=== PATIENT | male | born 1980 | race Caucasian/White ===

== ENCOUNTER 2020-01-15 13:14 | Emergency (ER) | payer OTHER, SELFPAY ==
[2020-01-15 13:25] VITALS: BP 137/78; PULSE 92; RESP 18; TEMP 37.1; O2SAT 100
--- NOTE | 2020-01-15 13:39 | ED.DENTAL ---
HPI - Dental/Oral General Chief complaint: Dental/Oral Stated complaint: Tooth pain Time Seen by Provider: 01/15/20 13:39 Source: patient and RN notes reviewed Mode of arrival: ambulatory Limitations: no limitations History of Present Illness HPI Narrative: 31-year-old male presents with concern for left lower dental pain. Reports having teeth extracted recently, many caries, missing teeth, broken teeth. Reports left lower facial swelling, pain. Denies drooling, difficulty swallowing, fever, malaise. In a separate complaint, he reports a rash on his neck area where he recently shaved a heavy sue. He reports occasionally itchy rash. Reports that waxes and wanes. Reports trying [id number] remedies with no relief. MD Complaint: tooth pain Teeth map: 1. Broken tooth, caries Related Data Home Medications Medication Instructions Recorded Confirmed buspirone mg 01/15/20 Allergies Allergy/AdvReac Type Severity Reaction Status Date / Time No Known Allergies Allergy Unverified 06/13/18 18:43 Review of Systems Review of Systems: Narrative: CONSTITUTIONAL: Denies malaise, chills, sweats, or fever. EYES: Denies visual changes, redness, or discharge. ENT: Denies rhinorrhea, congestion, sinus pain, otalgia or sore throat. Reports broken teeth, missing teeth, caries, left lower tooth pain and jaw swelling. CARDIOVASCULAR: Denies chest pain, palpitations RESPIRATORY: Denies cough or dyspnea. SKIN: Reports itchy rash on neck and sue line MUSCULOSKELETAL: Denies myalgia. NEUROLOGIC: Denies numbness, weakness, or headache. All systems reviewed & are unremarkable except as noted in HPI and below PMFSH Comments At time of signature, agree with nursing past medical, surgical, social and family history. There is no relevant family history pertinent to the presenting complaint Exam Narrative: Exam Narrative: GENERAL: Well-appearing, well-nourished, and in no acute distress. HEAD: Normocephalic EYES: PERRLA, conjunctivae clear ENT: Nares clear. Mucous membranes moist. Oropharynx without edema, erythema or lesions. Many missing teeth, broken teeth, caries. Left lower jaw swelling NECK: Supple. CHEST: No respiratory distress. Speaks in full sentences. HEART: Regular rate and rhythm. SKIN: Warm, dry. Erythematous maculopapular rash noted to neck, sue area NEURO: Alert and oriented x3. PSYCH: Normal mood and affect Course Course Emergency Course: Patient is aware of diagnosis, understands and agrees to treatment plan. Anticipatory guidance given. Patient agrees to follow-up as directed and is aware of reasons to seek care at the emergency department. Portions of this record may have been created with voice recognition software Vital Signs Vital signs: Vital Signs Temperature 98.8 F 01/15/20 13:25 Pulse Rate 92 01/15/20 13:25 Respiratory Rate 18 01/15/20 13:25 Blood Pressure 137/78 01/15/20 13:25 Pulse Oximetry 100 01/15/20 13:25 Temperature 98.8 F 01/15/20 13:25 Pulse Rate 92 01/15/20 13:25 Respiratory Rate 18 01/15/20 13:25 Blood Pressure 137/78 01/15/20 13:25 Pulse Oximetry 100 01/15/20 13:25 Reviewed. Pt has been instructed to follow up with his primary care provider within the next week regarding his elevated blood pressure today. MDM - Dental/Oral MDM Narrative Medical decision making narrative: Patients pain and complaint coupled with physical findings are consistant with dentalgia. There are no focal signs of space occupying lesions that are compromising to the airway; no dysphagia, odynophagia, dysphonia, or dyspnea. No uvular deviation or soft palate edema. Patient is non-toxic appearing. The floor of the mouth is soft with no signs of Jarvis's Angina; no induration below mandible, no neck pain. Patient is without trismus or drooling and able to swallow secretions. Patient is felt appropriate for discharge home with dental follow up. Does not appear at this t
== END 2020-01-15 13:48 | disposition home or self-care (01) ==
PROVIDERS: Emergency Provider Nurse Practitioner
DX: K08.89 Other specified disorders of teeth and supporting structures (principal); R21 Rash and other nonspecific skin eruption
CPT/HCPCS: 99213; G0463

== ENCOUNTER 2020-04-26 19:02 | Emergency (ER) | payer OTHER, SELFPAY ==
--- NOTE | ~2020-04-26 | XR_ITS ---
EXAMINATION: XR chest 1V portable 04/26/2020 20:07 INDICATION: Tachycardia. Overdose. PROCEDURE: AP portable chest COMPARISON: 11/13/2018 FINDINGS: The lungs are clear. The cardiomediastinal silhouette is within normal limits. There are no pleural effusions. There is no pneumothorax suspected. IMPRESSION: 1: NO ACUTE CARDIOPULMONARY DISEASE. Reviewed, dictated and finalized at location A.
[2020-04-26 19:01] VITALS: PULSE 132; RESP 36; TEMP 36.4; O2SAT 97
[2020-04-26] MEDS: HALOPERIDOL LACTATE 5 MG/ML VIAL (19:08)
--- NOTE | 2020-04-26 19:08 | PC.NURSE ---
Pt given 5MG Haldol IM and 2MG Ativan IVP per EDP at bedside.
--- NOTE | 2020-04-26 19:15 | ECG_ITS ---
Measurements Intervals [place] Rate: 110 P: 65 NC: 145 QRS: 76 QRSD: 80 T: 69 QT: 342 QTc: 463 Interpretive Statements SINUS TACHYCARDIA BASELINE ARTIFACT- I, II, III, AVR, AVL, AVF ABNORMAL ECG Electronically Signed On 04-27-2020 7:20:59 CDT by Giovanni Martinez D.O.
--- NOTE | 2020-04-26 19:16 | ED.OVERDOSE ---
HPI - Overdose General Chief Complaint: Overdose Stated Complaint: OD Time Seen by Provider: 04/26/20 19:04 History of Present Illness HPI Narrative: History taken from EMS, due to patient's acuity of condition. 39-year-old male presents via EMS for altered mental status today. Per EMS, they were called for decreased level consciousness. Patient was given intranasal Narcan with response. Family states that patient took fentanyl. Upon EMS arrival, patient was severely agitated. Patient nonverbal, is not following commands. Related Data Home Medications Medication Instructions Recorded Confirmed buspirone mg 01/15/20 Allergies Allergy/AdvReac Type Severity Reaction Status Date / Time No Known Allergies Allergy Unverified 06/13/18 18:43 Review of Systems Review of Systems: ROS unobtainable: Yes unobtainable due to medical condition Exam Narrative: Exam Narrative: GENERAL: Moderate distress HEAD: Normocephalic, atraumatic. EYES: Dilated pupils ENT: Nares clear, no rhinorrhea or epistaxis. Mucous membranes moist. Poor dentition NECK: Supple. CHEST: Clear to auscultation. No respiratory distress. HEART: Tachycardia, no murmur heard. ABDOMEN: Soft, nontender, nondistended, normal active bowel sounds. EXTREMITIES: Moves all extremities. SKIN: Warm, dry, no rash. NEURO: nonverbal, does not follow commands. PSYCH: Agitated Course Vital Signs Vital signs: Vital Signs Temperature 36.4 C L 04/26/20 19:01 Pulse Rate 132 H 04/26/20 19:01 Respiratory Rate 36 H 04/26/20 19:01 Pulse Oximetry 97 04/26/20 19:01 Temperature 36.4 C L 04/26/20 19:01 Pulse Rate 118 H 04/26/20 19:24 Respiratory Rate 19 04/26/20 19:24 Blood Pressure 112/90 04/26/20 19:24 Pulse Oximetry 100 04/26/20 19:24 MDM - Overdose MDM Narrative Medical decision making narrative: 23:22 - Care transferred to Dr. Echeverria, pending clinical improvement Medical Records Attestation: I reviewed the patient's medical records. Lab Data Attestation: I reviewed the patient's lab results. Result diagrams: 04/26/20 20:27 04/26/20 20:27 Labs: Lab Results 04/26/20 04/26/20 04/26/20 Range/Units 20:24 20:27 20:27 WBC 8.5 (4.5-10.0) K/mm3 RBC 4.10 L (4.6-6.20) M/mm3 Hgb 10.8 L (14.0-18.0) g/dL Hct 32.5 L (42.0-52.0) % MCV 79.3 L (80-100) fl MCH 26.3 (26-34) pg MCHC 33.2 (32-36) g/dl RDW 13.6 (11.5-14.5) % Plt Count 258 (150-375) k/mm3 MPV 9.2 (7.4-10.4) fl Immature Gran % (Auto) 0.4 (0-0.5) % Neut % (Auto) 81.0 H (45.5-73.1) % Lymph % (Auto) 11.5 L (18.3-44.2) % [place] % (Auto) 6.6 (2.6-8.5) % Eos % (Auto) 0.4 (0-4.4) % Baso % (Auto) 0.1 L (0.2-1.2) % Lymph # (Auto) 0.98 (0.9-3.2) K/mm3 [place] # (Auto) 0.6 (0.1-0.6) K/mm3 Eos # (Auto) 0.0 (0-0.3) K/mm3 Baso # (Auto) 0.0 (0.0-0.1) K/mm3 Abs Immat Gran (auto) 0.03 (0.00-0.031) K/mm3 Absolute Neuts (auto) 6.9 H (1.3-6.7) K/mm3 Absolute Nucleated RBC 0.0 (0.0-0.012) K/mm3 Nucleated RBC % 0.0 (0.0-0.2) % Sodium 137 (137-145) mmol/L Potassium 3.5 (3.4-5.0) mmol/L Chloride 103 (98-107) mmol/L Carbon Dioxide 27 (22-30) mmol/L Anion Gap 7 L (8-16) mmol/L BUN 9 (9-20) mg/dL Creatinine 0.70 (0.7-1.3) mg/dL Estim Creat Clear Calc Not Reportable Estimated GFR > 60 (59 - ) Glucose 105 (75-110) mg/dL Calcium 8.8 (8.4-10.2) mg/dL Magnesium 2.0 (1.6-2.3) mg/dL Total Bilirubin 0.5 (0.2-1.3) mg/dL AST 24 (17-59) U/L ALT 12 (4-50) U/L Alkaline Phosphatase 82 (38-126) U/L Total Creatine Kinase 123 (55-170) U/L Total Protein 7.0 (6.3-8.2) g/dL Albumin 3.7 (3.5-5.1) g/dL Salicylates (2-20) mg/dL Urine Opiates Screen Negative (Negative) Urine Methadone Screen Negative (Negative) Acetaminophen (10-30) ug/mL Ur Barbiturates Screen Neg
--- NOTE | 2020-04-26 19:21 | PC.NURSE ---
pt in room thrashing unable to stay still, unable to draw blood at this time
--- NOTE | 2020-04-26 19:23 | PC.NURSE ---
report received at this time. pt thrashing around in bed. pt remains in soft restraints. pt uncooperative with blood draw, EKG, urine collection, XR. aware at this time. awaiting medication to take affect.
[2020-04-26 19:24] VITALS: BP 112/90; PULSE 118; RESP 19; O2SAT 100
[2020-04-26 20:35] LABS: Basophils Percent Auto 0.1 % (0.2-1.2); Eosinophils Percent Auto 0.4 % (0-4.4); Hematocrit 32.5 % (42.0-52.0); Hemoglobin 10.8 g/dL (14.0-18.0); Immature Granulocyte Absolute 0.03 K/mm3 (0.00-0.031); Immature Granulocyte Percent A 0.4 % (0-0.5); Lymphocytes Absolute Auto 0.98 K/mm3 (0.9-3.2); Lymphocytes Percent Auto 11.5 % (18.3-44.2); Mean Corpuscular HGB Conc 33.2 g/dl (32-36); Mean Corpuscular Hemoglobin 26.3 pg (26-34); Mean Corpuscular Volume 79.3 fl (80-100); Mean Platelet Volume 9.2 fl (7.4-10.4); Monocytes Absolute Auto 0.6 K/mm3 (0.1-0.6); Monocytes Percent Auto 6.6 % (2.6-8.5); Neutrophils Absolute Auto 6.9 K/mm3 (1.3-6.7); Platelet Count Result 258 k/mm3 (150-375); Red Cell Distribution Width 13.6 % (11.5-14.5); White Blood Count 8.5 K/mm3 (4.5-10.0)
[2020-04-26 20:46] LABS: Acetaminophen < 10 ug/mL (10-30); Ethanol < 10 mg/dL (<10); Salicylate < 1.0 mg/dL (2-20)
[2020-04-26 20:46] LABS: Amphetamine Screen Urine Negative (Negative); Barbiturate Screen Urine Negative (Negative); Benzodiazepines Screen Urine Negative (Negative); Cannabinoid Screen Urine Positive (Negative); Cocaine Screen Urine Negative (Negative); Methadone Screen Urine Negative (Negative); Opiate Screen Urine Negative (Negative); Phencyclidine Screen Urine Negative (Negative)
[2020-04-26 20:53] LABS: Alanine Aminotransferase 12 U/L (4-50); Albumin Level 3.7 g/dL (3.5-5.1); Alkaline Phosphatase 82 U/L (38-126); Anion Gap 7 mmol/L (8-16); Aspartate Amino Transferase 24 U/L (17-59); Bilirubin,Total 0.5 mg/dL (0.2-1.3); Blood Urea Nitrogen 9 mg/dL (9-20); Calcium 8.8 mg/dL (8.4-10.2); Carbon Dioxide 27 mmol/L (22-30); Chloride 103 mmol/L (98-107); Creatine Kinase 123 U/L (55-170); Estimated Glomerular Filt Rate > 60; Glucose 105 mg/dL (75-110); Potassium 3.5 mmol/L (3.4-5.0); Sodium 137 mmol/L (137-145)
--- NOTE | 2020-04-26 21:00 | PC.NURSE ---
pt awake and answering questions appropriately at this time. pt states he only took Fentanyl today, states he has been using for years. pt no longer combative. MD at bedside. soft restraints removed at this time.
[2020-04-26 22:14] VITALS: BP 101/69; PULSE 96; RESP 17; O2SAT 99
--- NOTE | 2020-04-26 22:15 | PC.NURSE ---
pt continues to rest on stretcher at this time in NAD. RR even and unlabored. pt remains hooked up to monitor. pt's girlfriend called, updated on poc per pt request. pt denies any needs/concerns. pt remains calm/cooperative. will continue to monitor pt for baseline status changes.
--- NOTE | 2020-04-27 00:16 | PC.NURSE ---
pt's girlfriend at bedside at this time. pt continues to answer questions appropriately, denies any pain. pt vs stable, RR even and unlabored, denies any pain. pt remains hooked up to monitor, remains calm/cooperative. will continue to monitor pt for baseline status changes.
[2020-04-27 00:30] VITALS: BP 104/70; PULSE 86; RESP 19; O2SAT 100
== END 2020-04-27 00:42 | disposition home or self-care (01) ==
PROVIDERS: Emergency Provider Emergency Medicine
DX: T40.4X1A Poisoning by other synthetic narcotics, accidental (unintentional), initial encounter (principal)
CPT/HCPCS: 36415; 71045; 80053; 80307; 82550; 83735; 85025; 93005; 96372; 99285; J1630; J2060

== ENCOUNTER 2020-04-27 19:58 | Emergency (ER) | payer OTHER, SELFPAY ==
--- NOTE | ~2020-04-27 | XR_ITS ---
EXAMINATION: XR chest 2V 04/27/2020 20:46 INDICATION: Shortness of breath. Medial chest pain. Smoker. PROCEDURE: 2 view chest COMPARISON: 04/26/2020 FINDINGS: The lungs are clear. The cardiomediastinal silhouette is within normal limits. There are no pleural effusions. There is no pneumothorax suspected. IMPRESSION: 1: NO ACUTE CARDIOPULMONARY DISEASE. Reviewed, dictated and finalized at location A.
[2020-04-27 20:15] VITALS: BP 138/81; PULSE 95; RESP 20; TEMP 36.9; O2SAT 98
--- NOTE | 2020-04-27 20:37 | ECG_ITS ---
Measurements Intervals [place] Rate: 102 P: 67 UT: 168 QRS: 62 QRSD: 80 T: 55 QT: 351 QTc: 459 Interpretive Statements SINUS TACHYCARDIA BASELINE ARTIFACT- II, III, AVR, AVL, AVF, V1-V3 ABNORMAL ECG Electronically Signed On 04-27-2020 21:56:03 CDT by Giovanni Martinez D.O.
--- NOTE | 2020-04-27 20:38 | ED.SOB ---
HPI - SOB/Dyspnea General Chief Complaint: Shortness of Breath/Dyspnea Stated Complaint: cant stop smiling Time Seen by Provider: 04/27/20 20:26 Source: patient History of Present Illness HPI Narrative: 39-year-old male presents emergency department feeling short of breath since this morning. Patient states he has never felt like this in the past before. Nothing makes it worse or better. He states he was at home, and fell like he could not catch his breath. He does state he was feeling anxious. Has not taken anything for symptoms. No chest pain. No abdominal pain. No nausea or vomiting. Related Data Home Medications Medication Instructions Recorded Confirmed buspirone mg 01/15/20 Allergies Allergy/AdvReac Type Severity Reaction Status Date / Time No Known Allergies Allergy Unverified 06/13/18 18:43 Review of Systems Review of Systems: Narrative: CONSTITUTIONAL: Denies fever, chills, or sweats. EYES: Denies visual changes, redness, or discharge. ENT: Denies rhinorrhea, congestion, sore throat, or otalgia. CARDIOVASCULAR: Denies chest pain, palpitations, or edema. RESPIRATORY: Denies cough. Reports shortness of breath GASTROINTESTINAL: Denies abdominal pain, nausea, vomiting, or diarrhea. GENITOURINARY: Denies dysuria or hematuria. SKIN: Denies rash or itching. MUSCULOSKELETAL: Denies back pain, joint pain, or myalgia. NEUROLOGIC: Denies headache, numbness, dizziness, or weakness. PSYCHIATRIC: Denies anxiety or depression. All systems reviewed & are unremarkable except as noted in HPI and below (ROS) Exam Narrative: Exam Narrative: GENERAL: Well-appearing, well-nourished, mild distress HEAD: Normocephalic, atraumatic. EYES: PERRLA and EOMI. ENT: Nares clear, no rhinorrhea or epistaxis. Mucous membranes moist. NECK: Supple. CHEST: Clear to auscultation. No respiratory distress. HEART: Tachycardia, no murmur heard. Normal peripheral pulses. ABDOMEN: Soft, nontender, nondistended, normal active bowel sounds. EXTREMITIES: Normal range of motion. No edema. SKIN: Warm, dry, no rash. NEURO: No focal deficits. Alert and oriented x3. PSYCH: Anxious Course Reevaluation(s) Reevaluation #1: 2114 -reevaluated patient, no new complaints. Patient resting comfortably in bed. Shortness of breath likely anxiety. Also could be from marijuana use. Vital Signs Vital signs: Vital Signs Temperature 36.9 C 04/27/20 20:15 Pulse Rate 95 04/27/20 20:15 Respiratory Rate 04/27/20 20:15 Blood Pressure 138/81 04/27/20 20:15 Pulse Oximetry 98 04/27/20 20:15 Temperature 36.9 C 04/27/20 20:15 Pulse Rate 95 04/27/20 20:15 Respiratory Rate 20 04/27/20 20:15 Blood Pressure 138/81 04/27/20 20:15 Pulse Oximetry 98 04/27/20 20:15 MDM - SOB/Dyspnea Medical Records Attestation: I reviewed the patient's medical records. Lab Data Attestation: I reviewed the patient's lab results. Imaging Data Radiologist's impression: ITS Impressions Chest X-Ray 04/27/20 20:47 IMPRESSION: 1: NO ACUTE CARDIOPULMONARY DISEASE. ECG Data EKG #1: Attestation: I personally reviewed and interpreted this ECG as follows: ECG completion date: 04/27/20 ECG completion time: 21:31 Interpretation: sinus tachycardia at 102 - abnormal ekg EKG Interpretation: tachycardia, no ST changes, normal QRS and NL axis Discharge Plan Discharge Clinical Impression: Anxiety states Patient Disposition: Home, Self-Care Condition: Stable Instructions: Anxiety (ED) Prescriptions: No Action buspirone 30 mg tablet RF: 0 triamcinolone acetonide 0.1 % cream 1 applic TOPICAL BID 7 Days Qty: 80 RF: 0 amoxicillin-pot clavulanate [Augmentin] 875-125 mg tablet 1 tablet PO Q12H 10 Days Qty: 20 RF: 0 Follow-up/Referrals: Richie Neal MD [Physician] - 1 Week UNKNOWN,DOCTOR [Primary Care Provider] -
[2020-04-27] MEDS: SODIUM CHLORIDE 0.9% IV 1,000 ML 999 ML IV CONT (21:01)
[2020-04-27 22:36] VITALS: BP 147/78; PULSE 76; RESP 18; TEMP 36.7; O2SAT 98
== END 2020-04-27 22:37 | disposition home or self-care (01) ==
PROVIDERS: Emergency Provider Emergency Medicine
DX: F41.9 Anxiety disorder, unspecified (principal); R00.0 Tachycardia, unspecified
CPT/HCPCS: 71046; 93005; 96361; 96374; 99284; J2060; J7030

== ENCOUNTER 2021-10-24 20:33 | Emergency (ER) | payer OTHER, SELFPAY ==
--- NOTE | ~2021-10-24 | XR_ITS ---
EXAMINATION: XR wrist LT min 3V EXAM DATE: 10/24/2021 20:59 INDICATION: Fall With Pain/Swelling Lt Wrist Posterior Lat Side TECHNIQUE: Left wrist frontal, frontal with ulnar deviation, oblique and lateral projections obtained and reviewed. There is no prior study for comparison. FINDINGS: Left wrist scapholunate joint space is maintained. Tiny chip fracture suspected off the do rsal aspect of the wrist. Usually this is the triquetral bone. This is indicated on the lateral proje ction. There is overlying soft tissue swelling. IMPRESSION: Left wrist dorsal chip fracture, probably triquetrum. Reviewed, dictated and finalized at location . L AIRCREWMAN
[2021-10-24 20:36] VITALS: BP 126/84; PULSE 110; RESP 20; TEMP 36.6; O2SAT 99
--- NOTE | 2021-10-24 20:59 | ED.UPPEXIN ---
HPI - Extremity Injury (Upper) General Chief Complaint: Extremity Injury, Upper Stated Complaint: wrist injury Time Seen by Provider: 10/24/21 20:45 Source: patient History of Present Illness HPI narrative: Patient presents with left wrist pain. Reports he was changing when he tripped over his own pant leg and fell onto his right wrist. He had immediate pain and came to the ER for evaluation. Reports is difficult to move his fingers due to pain denies any focal numbness or weakness denies striking his head or any loss of consciousness. Related Data Home Medications Medication Instructions Recorded Confirmed buspirone mg 01/15/20 Allergies Allergy/AdvReac Type Severity Reaction Status Date / Time No Known Allergies Allergy Unverified 06/13/18 18:43 Review of Systems Review of Systems: CONSTITUTIONAL: Denies fever, chills, or sweats. EYES: Denies visual changes, redness, or discharge. ENT: Denies rhinorrhea, congestion, sore throat, or otalgia. CARDIOVASCULAR: Denies chest pain, palpitations, or edema. RESPIRATORY: Denies cough or dyspnea. GASTROINTESTINAL: Denies abdominal pain, nausea, vomiting, or diarrhea. GENITOURINARY: Denies dysuria or hematuria. SKIN: Denies rash or itching. MUSCULOSKELETAL: Denies back pain, or myalgia. NEUROLOGIC: Denies headache, numbness, dizziness, or weakness. PSYCHIATRIC: Denies anxiety or depression. All systems reviewed & are unremarkable except as noted in HPI and below PMFSH Past Medical History Medical History (Updated 10/24/21 @ 21:24 by Gautam Valera MD) Patient denies significant medical history Social History Social History Gender identity (if verbalized by the patient): Male Exam Narrative: GENERAL: Well-appearing, well-nourished, and in no acute distress. HEAD: Normocephalic, atraumatic. EYES: PERRLA and EOMI. ENT: Nares clear, no rhinorrhea or epistaxis. Mucous membranes moist. NECK: Supple. No masses. No JVD EXTREMITIES: Limited range of motion of the left fingers and wrist due to pain there is no edema to the left wrist there is diffuse tenderness to the left wrist there is no open or draining wounds there is ecchymosis to the left wrist. SKIN: Warm, dry, no rash. NEURO: No focal deficits. Alert and oriented x3. PSYCH: Normal mood and affect. Course Reevaluation(s) Reevaluation #1: Plain films reviewed with patient. Patient is comfortable with the outpatient plan. Date: 10/24/21 Time: :22 Vital Signs Vital signs: Vital Signs Temperature 36.6 C 10/24/21 20:36 Pulse Rate 110 H 10/24/21 20:36 Respiratory Rate 20 10/24/21 20:36 Blood Pressure 126/84 10/24/21 20:36 Pulse Oximetry 99 10/24/21 20:36 Temperature 36.6 C 10/24/21 20:36 Pulse Rate 88 10/24/21 22:23 Respiratory Rate 18 10/24/21 22:23 Blood Pressure 142/78 H 10/24/21 21:38 Pulse Oximetry 98 10/24/21 22:23 MDM - Extremity Injury (Upper) MDM Narrative Medical decision making narrative: H&P as above, vss, pt looks clinically well, exam with diffuse tenderness to the left wrist no open or draining wounds distal extremity neurovascularly intact, imaging with triquetrum fracture, additional labs/img considered, symptomatic relief available as needed, on reevaluation pt continues to looks clinically well. Suspect isolated triquetrum fracture, dns major neurovascular compromise open fracture. plan to tx/monitor as op w/ Ortho f/u findings/plan discussed with pt, pt agree/comfortable with plan, return precautions given Imaging Data Radiologist's impression: Impressions Wrist X-Ray 10/24/21 21:03 IMPRESSION: Left wrist dorsal chip fracture, probably triquetrum. Discharge Plan Discharge Clinical Impression: Fracture of triquetral bone of left wrist Qualifiers: Encounter type: initial encounter Fracture type: closed Fracture alignment: displaced Qualified Code(s): S62.112A - Displace
[2021-10-24] MEDS: MORPHINE SULFATE (*CRX) 4 MG/ML INJ IV PUSH (21:07)
[2021-10-24 21:38] VITALS: BP 142/78; PULSE 78; RESP 18; O2SAT 98
--- NOTE | 2021-10-24 22:11 | PC.NURSE ---
LEFT VOLAR FIBERGLASS SPLIT PLACED WITH SLING.
[2021-10-24 22:23] VITALS: PULSE 88; RESP 18; O2SAT 98
== END 2021-10-24 22:25 | disposition home or self-care (01) ==
LOC: ANHED 21:35
PROVIDERS: Emergency Provider Emergency Medicine; PCP Family Medicine
DX: S62.112A Displaced fracture of triquetrum [cuneiform] bone, left wrist, initial encounter for closed fracture (principal); W01.0XXA Fall on same level from slipping, tripping and stumbling without subsequent striking against object, initial encounter
CPT/HCPCS: 29125; 73110; 96374; 99284; A4565; J2270

== ENCOUNTER 2022-08-17 18:28 | Emergency (ER) | payer OTHER, SELFPAY ==
--- NOTE | 2022-08-17 18:44 | ED.DENTAL ---
HPI - Dental/Oral General Chief complaint: Dental/Oral Stated complaint: tooth pain Time Seen by Provider: 08/17/22 18:44 Source: patient, RN notes reviewed and old records reviewed Mode of arrival: ambulatory Limitations: no limitations History of Present Illness HPI Narrative: 42-year-old male presents to the [facility] with complaints of dental pain for a while. States he does not have a dental provider. Very poor dentition with multiple decay and swelling of alternate of up worse on the left upper. Related Data Allergies Allergy/AdvReac Type Severity Reaction Status Date / Time No Known Allergies Allergy Unverified 08/17/22 18:53 Review of Systems Review of Systems: All systems reviewed & are unremarkable except as noted in HPI and below Constitutional: Constitutional: Reports no additional constitutional complaints Eyes: Eyes: Reports no additional eye complaints ENT: Reports as per HPI Cardiovascular: Cardiovascular: Reports no additional cardiovascular complaints, Denies chest pain and Denies dyspnea Respiratory: Respiratory: Reports no additional respiratory complaints, Denies chest congestion, Denies cough and Denies dyspnea Gastrointestinal: Gastrointestinal: Reports no additional gastrointestinal complaints, Denies abdominal pain, Denies nausea and Denies vomiting Musculoskeletal: Musculoskeletal: Reports no additional musculoskeletal complaints Integumentary/Breasts: Skin/Breast: Reports system reviewed and no additional complaints, except as docu Neurologic: Reports system reviewed and no additional complaints, except as documented Psychiatric: Psychiatric: Reports no additional psychiatric complaints Allergic/Immunologic: Allergic/Immunologic: Reports no additional allergic/immunologic complaints PMFSH Past Medical History Medical History (Updated 08/17/22 @ 18:52 by Alexandria Castelan APRN) Patient denies significant medical history Social History Social History Gender identity (if verbalized by the patient): Male Comments At the time of my signature, I reviewed and agree with the nursing past medical, surgical, social, and family history. There is no relevant family history pertinent to the patient complaint. Exam Const: General: cooperative, healthy appearing, comfortable, no acute distress, well developed, alert and well nourished Nutritional Appearance: well nourished Orientation/consciousness: patient oriented x3 Limitations: no limitations HENMT: Head: normal to inspection Ears: hearing grossly normal bilaterally and external ears normal Face/Nose/Sinus: Normal external nose present, Normal nares present, Normal nasal mucous membranes and turbinates present and normal facial exam Face and sinus: normal facial exam Mouth: Yes Normal oral and palatal mucosa present, Yes lip normal and Yes moist mucous membranes Teeth and gingiva: abnormal tooth and associated gingiva (Swelling gingiva worse left upper with multiple decayed teeth,) Throat: posterior oropharynx normal and uvula midline Eyes: General: appearance normal, both eyes and all related structures Alignment and Position: alignment normal Periorbital: periorbital findings normal Conjunctivae: conjunctivae normal Pupils: Equal, round and reactive pupils present EOM: EOMs intact bilaterally Neck: Neck: normal visual inspection, full ROM, no lymphadenopathy and no meningeal signs Chest: Chest palpation & inspection: normal inspection of the chest Resp: Effort & Inspection: normal respiratory effort and able to speak in complete sentences Auscultation: clear to auscultation bilaterally, no crackles, no rales, no rhonchi and no wheezes Cardio: Rate: regular rate Rhythm: regular rhythm Back/Spine/Pelvis: Cervical Spine: cervical ROM normal Thoracic/Lumbar Spine: No thoracic spinal tenderness Skin: General skin exam: normal color and no rashes or lesions noted Lesions: n
[2022-08-17 18:49] VITALS: BP 154/90; PULSE 141; RESP 16; TEMP 37.7; O2SAT 98
== END 2022-08-17 18:58 | disposition home or self-care (01) ==
PROVIDERS: Emergency Provider Nurse Practitioner
DX: K02.9 Dental caries, unspecified (principal); K04.7 Periapical abscess without sinus
CPT/HCPCS: 99213; G0463

== ENCOUNTER 2022-10-19 19:21 | Emergency (ER) | payer OTHER, SELFPAY ==
--- NOTE | ~2022-10-19 | XR_ITS ---
EXAM: XR hand RT min 3V DATE: 10/19/2022 19:49 HISTORY: r/o foreign body . COMPARISON: None available. FINDINGS: Normal mineralization. Old boxer's fracture. No acute fracture or dislocation. No lytic or blastic lesion. Joint spaces are maintained. No erosion or periosteal change. Soft tissues within no rmal limits. IMPRESSION: No acute osseous finding in the right hand. No radiopaque foreign body. Reviewed, dictated and finalized at location [facility]. [facility] IMPRESSION: No acute osseous finding in the right hand. No radiopaque foreign b hermelinda.
[2022-10-19 19:24] VITALS: BP 142/83; PULSE 126; RESP 18; TEMP 36.9; O2SAT 100
[2022-10-19] MEDS: ACETAMINOPHEN 500 MG TABLET 1000 MG PO (19:48)
[2022-10-19] MEDS: TETANUS,DIPHTHERIA,AC PERTUSSIS ADULT (0.5 ML) BOOSTRIX IM (19:48)
--- NOTE | 2022-10-19 20:08 | ED.GENADULT ---
HPI - General Adult General Chief complaint: Wound/Laceration <Niranjan Sharp PA-C - Last Filed: 10/19/22 20:50> Stated complaint: lac to right hand, accidentally <Niranjan Sharp PA-C - Last Filed: 10/19/22 20:50> Time Seen by Provider: 10/19/22 19:40 <Niranjan Sharp PA-C - Last Filed: 10/19/22 20:50> History of Present Illness HPI narrative: This is a 42-year-old male who presents for chief complaint of skin wound that occurred just prior to arrival in the ED. He was washing dishes in his sink when a piece of glass fell, he reached for it and accidentally cut himself. Wound is on the right hand. Reports some minor pain here. Tetanus status unknown. Denies any fevers chills numbness, weakness. Denies any further complaints. <Niranjan Sharp PA-C - Last Filed: 10/19/22 20:50> Related Data Allergies/adverse reactions: Allergies Allergy/AdvReac Type Severity Reaction Status Date / Time No Known Allergies Allergy Verified 10/19/22 19:36 <Niranjan Sharp PA-C - Last Filed: 10/19/22 20:50> Review of Systems Review of Systems: CONSTITUTIONAL: Denies fever, chills, or sweats. SKIN: Endorses skin wound to the right hand. Denies rash or itching. Denies discoloration. MUSCULOSKELETAL: Endorses some pain in the right hand. Denies back pain, joint pain, or myalgia. NEUROLOGIC: Denies numbness, dizziness, or weakness. <Niranjan Sharp PA-C - Last Filed: 10/19/22 20:50> [facility] Past Medical History Medical History: Medical History (Updated 10/20/22 @ 00:00 by Katherine Garcia) Patient denies significant medical history <Niranjan Sharp PA-C - Last Filed: 10/19/22 20:50> Social History Social History: Social History Gender identity (if verbalized by the patient): Male <Niranjan Sharp PA-C - Last Filed: 10/19/22 20:50> Exam Narrative: GENERAL: Well-appearing, well-nourished, and in no acute distress. HEAD: Normocephalic, atraumatic. EYES: PERRLA and EOMI. EXTREMITIES: Normal range of motion. No edema. 5 out of 5 strength and sensation in bilateral upper extremities SKIN: There is an approximately 3 cm skin avulsion noted to the dorsal hypothenar region. No active bleeding. There is about 1/2 cm of tissue still connected. Warm, dry, no rash. No discoloration. NEURO: Alert and oriented x3. No focal deficits. PSYCH: Normal mood and affect. <Niranjan Sharp PA-C - Last Filed: 10/19/22 20:50> Course EMAIL DEVELOPER/PA Physician Supervision For this encounter, I have reviewed the mid-level provider documentation, treatment plan and medical decision making. I have had [id number] time with the patient. This is a pleasant 42-year-old male presenting with a hand laceration. He has a superficial cut with a skin flap. It was repaired with Dermabond and Steri-Strips. Valentin components of procedure performed under my supervision. All questions answered. Patient in agreement w/ disposition. <Siva Stevens MD - Last Filed: 10/20/22 20:11> Vital Signs Vital signs: Vital Signs Temperature 98.5 F 10/19/22 19:24 Pulse Rate 126 H 10/19/22 19:24 Respiratory Rate 18 10/19/22 19:24 Blood Pressure 142/83 H 10/19/22 19:24 Pulse Oximetry 100 10/19/22 19:24 Oxygen Delivery Room Air 10/19/22 19:24 Temperature 98.5 F 10/19/22 19:24 Pulse Rate 126 H 10/19/22 19:24 Respiratory Rate 18 10/19/22 19:24 Blood Pressure 142/83 H 10/19/22 19:24 Pulse Oximetry 100 10/19/22 19:24 Oxygen Delivery Room Air 10/19/22 19:24 <Niranjan Sharp PA-C - Last Filed: 10/19/22 20:50> Vital Signs Temperature 98.5 F 10/19/22 19:24 Pulse Rate 126 H 10/19/22 19:24 Respiratory Rate 18 10/19/22 19:24 Blood Pressure 142/83 H 10/19/22 19:24 Pulse Oximetry 100 10/19/22 19:24 Oxygen Delivery Room Air 10/19/22 19:24 Temperature 98.5 F 10/19/22 19:24 Pulse Rate 126 H 10/19/22 19:24 Respiratory Rat
== END 2022-10-19 21:02 | disposition home or self-care (01) ==
PROVIDERS: Emergency Provider Physician Assistant
DX: S61.411A Laceration without foreign body of right hand, initial encounter (principal); Z23 Encounter for immunization; W25.XXXA Contact with sharp glass, initial encounter; Y93.G1 Activity, food preparation and clean up
CPT/HCPCS: 12002; 73130; 90471; 90715; 99283; A9270

== ENCOUNTER 2023-08-13 14:49 | Emergency (ER) | payer OTHER, SELFPAY ==
[2023-08-13 15:18] VITALS: BP 115/77; PULSE 100; RESP 16; TEMP 36.6; O2SAT 97
--- NOTE | 2023-08-13 15:39 | ED.URI ---
HPI - URI/Sore Throat General Chief Complaint: Upper Respiratory Infection Stated Complaint: Sinus/Ears Irritation Time Seen by Provider: 08/13/23 15:39 Source: patient Mode of arrival: ambulatory Limitations: no limitations History of Present Illness HPI Narrative: 42-year-old male presents with complaint of cough, nasal congestion, sinus pressure, bilateral ear pain, postnasal drainage for the past 4-5 weeks. No chest pain or shortness of breath. Has tried several [id number] medications without relief of symptoms. Patient reports that bilateral ears have pressure, crackling, whooshing noises. Afebrile. All systems reviewed and negative except as noted above. Related Data Allergies Allergy/AdvReac Type Severity Reaction Status Date / Time No Known Allergies Allergy Verified 08/13/23 14:51 Review of Systems Review of Systems: CONSTITUTIONAL: Denies fever, chills, or sweats. EYES: Denies visual changes, redness, or discharge. ENT: Reports rhinorrhea, congestion, sinus pressure, postnasal drainage, bilateral ear pain. Denies sore throat. CARDIOVASCULAR: Denies chest pain, palpitations, or edema. RESPIRATORY: Reports cough. Denies dyspnea. GASTROINTESTINAL: Denies abdominal pain, nausea, vomiting, or diarrhea. GENITOURINARY: Denies dysuria or hematuria. SKIN: Denies rash or itching. MUSCULOSKELETAL: Denies back pain, joint pain, or myalgia. NEUROLOGIC: Denies headache, numbness, or weakness. PSYCHIATRIC: Denies anxiety or depression. All other systems reviewed are negative, except as documented in HPI. [facility] Past Medical History Medical History (Updated 08/13/23 @ 15:47 by Estephanie Ross NP) Patient denies significant medical history Social History Social History Gender identity (if verbalized by the patient): Male Comments At time of signature, agree with nursing past medical, surgical, social and family history. There is no relevant family history pertinent to the presenting complaint. Exam Narrative: GENERAL: This is a well-nourished, well-developed patient, in no apparent distress. HEAD: normocephalic, atraumatic. EYES: PERRL. Sclera clear/white. Vision is grossly intact. EARS: External ears normal, auditory canals clear and without drainage, fluid bilateral TMs with erythema or perforation. Mildly bulging. Hearing grossly intact. NOSE: External nose normal with Purulent nasal drainage with erythema and swelling to bilateral nares. Bilateral maxillary sinus tenderness on palpation. THROAT: Mucous membranes moist, Erythematous with postnasal drainage NECK: Neck supple, non-tender without lymphadenopathy, masses or thyromegaly. CARDIOVASCULAR: Regular rate and rhythm without murmurs, gallops, or rubs. RESPIRATORY: Mild expiratory wheeze throughout all lung zhong. Breath sounds equal bilaterally. No rales, or rhonchi. SKIN: warm, Dry, intact with no suspicious lesions or rash, good texture and turgor. NEURO: awake, alert, and oriented to person, place and time. There were no obvious focal neurologic abnormalities. EXTREMITIES: No joint tenderness, effusion, or edema noted. Course Course Level of Care: Express Care Visit Vital Signs Vital signs: Vital Signs Temperature 36.6 C 08/13/23 15:18 Pulse Rate 100 08/13/23 15:18 Respiratory Rate 16 08/13/23 15:18 Blood Pressure 115/77 08/13/23 15:18 Pulse Oximetry 97 08/13/23 15:18 Oxygen Delivery Room Air 08/13/23 15:18 Temperature 36.6 C 08/13/23 15:18 Pulse Rate 100 08/13/23 15:18 Respiratory Rate 16 08/13/23 15:18 Blood Pressure 115/77 08/13/23 15:18 Pulse Oximetry 97 08/13/23 15:18 Oxygen Delivery Room Air 08/13/23 15:18 reviewed MDM - URI/Sore Throat MDM Narrative Medical decision making narrative: will treat patient with antibiotic due to duration of symptoms and exam findings. Will give patient prednisone an
== END 2023-08-13 15:55 | disposition home or self-care (01) ==
PROVIDERS: Emergency Provider Nurse Practitioner Family
DX: H65.03 Acute serous otitis media, bilateral (principal); J01.90 Acute sinusitis, unspecified; J20.9 Acute bronchitis, unspecified
CPT/HCPCS: 99213; G0463

== ENCOUNTER 2023-10-15 15:48 | Emergency (ER) | payer OTHER, SELFPAY ==
[2023-10-15 15:59] VITALS: BP 146/89; PULSE 125; RESP 18; TEMP 36.9; O2SAT 97
--- NOTE | 2023-10-15 16:36 | ED.EYEPROB ---
HPI - Eye Problem General Chief complaint: Eye Problems Stated complaint: both eyes red,discharge Time Seen by Provider: 10/15/23 16:36 Source: patient Mode of arrival: ambulatory Limitations: no limitations History of Present Illness HPI Narrative: 43-year-old male presents with complaint of right eye redness, itching and I agree as For 4 days. Patient reports started to right eye and now spread to left eye. No vision changes. All systems reviewed and negative except as noted above. Related Data Allergies Allergy/AdvReac Type Severity Reaction Status Date / Time No Known Allergies Allergy Verified 10/15/23 16:17 Review of Systems Review of Systems: CONSTITUTIONAL: Denies fever, chills, or sweats. EYES: Denies visual changes . Reports redness, itching and discharge bilateral. ENT: Denies rhinorrhea, congestion, sore throat, or otalgia. CARDIOVASCULAR: Denies chest pain, palpitations, or edema. RESPIRATORY: Denies cough or dyspnea. GASTROINTESTINAL: Denies abdominal pain, nausea, vomiting, or diarrhea. GENITOURINARY: Denies dysuria or hematuria. SKIN: Denies rash or itching. MUSCULOSKELETAL: Denies back pain, joint pain, or myalgia. NEUROLOGIC: Denies headache, numbness, or weakness. PSYCHIATRIC: Denies anxiety or depression. All other systems reviewed are negative, except as documented in HPI. [facility] Past Medical History Medical History (Updated 10/15/23 @ 16:40 by Estephanie Ross NP) Patient denies significant medical history Social History Social History Gender identity (if verbalized by the patient): Male Comments At time of signature, agree with nursing past medical, surgical, social and family history. There is no relevant family history pertinent to the presenting complaint. Exam Narrative: GENERAL: This is a well-nourished, well-developed patient, in no apparent distress. HEAD: normocephalic, atraumatic. EYES: PERRL. Sclera and conjunctiva erythematous bilaterally with purulent discharge. Vision is grossly intact. EARS: External ears normal NOSE: External nose normal NECK: Neck supple, non-tender without lymphadenopathy, masses or thyromegaly. CARDIOVASCULAR: Regular rate and rhythm without murmurs, gallops, or rubs. RESPIRATORY: Clear to auscultation. Breath sounds equal bilaterally. No wheezes, rales, or rhonchi. SKIN: warm, Dry, intact with no suspicious lesions or rash, good texture and turgor. NEURO: awake, alert, and oriented to person, place and time. There were no obvious focal neurologic abnormalities. EXTREMITIES: No joint tenderness, effusion, or edema noted. Course Course Level of Care: Express Care Visit Vital Signs Vital signs: Vital Signs Temperature 36.9 C 10/15/23 15:59 Pulse Rate 125 H 10/15/23 15:59 Respiratory Rate 18 10/15/23 15:59 Blood Pressure 146/89 H 10/15/23 15:59 Pulse Oximetry 97 10/15/23 15:59 Oxygen Delivery Room Air 10/15/23 15:59 Temperature 36.9 C 10/15/23 15:59 Pulse Rate 125 H 10/15/23 15:59 Respiratory Rate 18 10/15/23 15:59 Blood Pressure 146/89 H 10/15/23 15:59 Pulse Oximetry 97 10/15/23 15:59 Oxygen Delivery Room Air 10/15/23 15:59 Reviewed MDM - Eye Problem MDM Narrative Medical decision making narrative: Patient is aware of diagnosis, understands and agrees to treatment plan. Anticipatory guidance given. Patient agrees to follow-up as directed and is aware of reasons to seek care at the emergency department. Portions of this record may have been created with voice recognition software Differential Diagnosis Differential diagnosis: Likely conjunctivitis Discharge Plan Discharge Clinical Impression: Acute bacterial conjunctivitis of both eyes Patient Disposition: Home, Self-Care Condition: Stable Instructions: Antibiotic Form, Conjunctivitis (ED) Additional Instructions: place antibiotic eyedrops
== END 2023-10-15 16:42 | disposition home or self-care (01) ==
PROVIDERS: Emergency Provider Nurse Practitioner Family
DX: H10.33 Unspecified acute conjunctivitis, bilateral (principal)
CPT/HCPCS: 99213; G0463